=== PATIENT | male | born 1955 | race Caucasian/White ===

== ENCOUNTER → 2017-04-07 | Outpatient (CLI) | payer OTHER ==
[2016-06-02 14:03] VITALS: BP 153/93
--- NOTE | 2017-04-07 12:21 | MRI ---
MR left shoulder without contrast Indication: Left shoulder pain, neck pain and headaches. Comparison: No recent shoulder imaging. Chest radiograph from 06/02/2016 reviewed. Technique: Multiplanar multi sequence imaging through the left shoulder without contrast. Findings: There is type 1 acromion with mild AC joint degenerative change. No muscle belly atrophy se en. Bone marrow signal is normal. Neurovascular structures are normal. F There is intra-articular biceps tendinosis with partial tearing of the biceps tendon suggested. Devel oping split tear suggested on axial image 21 in the bicipital groove. There is mild subacromial/subdeltoid bursitis. There is SLAP tear at the superior glenoid labrum see coronal image 10. This involves the biceps anch or. This propagates posteriorly into the posterior glenoid labrum see axial images 14-18, and into th e inferior glenoid labrum. Anterior inferior glenoid labrum is relatively intact. Inferior glenohumeral ligament thickening and mild stranding in the rotator interval raises the possi bility of adhesive capsulitis. There is high-grade articular surface tear of the subscapularis at the footprint see sagittal images 19-14, with mild delaminating component tracking centrally on sagittal image 15. This is probably 50% thickness at least. Middle glenohumeral ligament is not well identified and may be torn. If there is intrasubstance high signal at the superior rotator cuff, at the junction of the anterior fiber infra spinatus and posterior fibers supraspinatus. Intrasubstance tearing and tendinosis suspected. This is partial-thickness and probably 25-50% of the thickness of the tendon. This may be hidden at arthrosc opy. Articular surface communication possible. Impression: 1. Complex tear of the superior and posterior glenoid labrum, propagating into the inferior glenoid l abrum. There is thickening of the inferior glenohumeral ligament and stranding in the rotator interva l. Adhesive capsulitis may also be present. 2. The glenoid labrum tear involves the biceps anchor and there is tendinosis of the biceps tendon po ssible split tear at the bicipital groove. Joint fluid tracks along the biceps tendon. 3. Superior rotator cuff tendinosis and possible intrasubstance tear at the junction of the anterior fibers infraspinatus and posterior fibers supraspinatus. This may communicate with the articular surf christian of the tendon but may be difficult visualize arthroscopically. 4. AC joint degenerative changes subacromial/subdeltoid bursitis. The acromion is minimally downslopi ng contacts the supraspinatus at the myotendinous junction. 5. At least 50% thickness tear of the superior fibers of the subscapularis at the footprint and propa gating centrally with a delaminating component. Reported By:
== END | disposition home or self-care (01) | DRG 149 ==
LOC: RAD 08:24
PROVIDERS: ATTEND Psychiatry & Neurology Neurology with Special Qualifications in Child Neurology
DX: H81.03 Meniere's disease, bilateral (principal); M79.602 Pain in left arm; R51 Headache; M54.2 Cervicalgia; E11.42 Type 2 diabetes mellitus with diabetic polyneuropathy; M21.371 Foot drop, right foot; S43.492A Other sprain of left shoulder joint, initial encounter; X58.XXXA Exposure to other specified factors, initial encounter; M75.22 Bicipital tendinitis, left shoulder; M75.102 Unspecified rotator cuff tear or rupture of left shoulder, not specified as traumatic; M19.012 Primary osteoarthritis, left shoulder
CPT/HCPCS: 73221

== ENCOUNTER 2021-03-21 12:10 | Observation (INO) ==
[2021-03-21 12:13] VITALS: BMI 23.7
--- NOTE | 2021-03-21 12:24 | DR.CP ---
HPI Time Seen Time Seen by Provider: 03/21/21 12:21 PCP Primary Care Physician: MEGAN Complaint Chief Complaint Doctor Comments: 65 y/o male presents for evaluation. Having chest pain over the past week. Was worse yesterday. Pain located of the lower center of the anterior chest. Pressure like in sensation. Does not radiate. Nothing brings it on. Nothing makes it better or worse. Associated with feeling hot, but no diaphoresis. Having some dyspnea with it. Denies recent illness - no cough, congestion, N/V, diarrhea, urinary difficulties, fever or chills. No prior h/o heart disease. 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 Chief Complaint:: PT. C/O CHEST DISCOMFORT X 1 WEEK. CHEST PAIN WORSENED YESTERDAY. PT. HAS HAD ONE BABY ASPIRIN TODAY. PT. ALSO C/O INCREASED SHORTNESS OF BREATH. 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, + cervical fusion Family History History of Family Medical Conditions: Yes Family Medical History: Diabetes Mellitus, Cancer, Heart Failure and Hypertension Social History Does patient currently use any type of tobacco product: No Have you used tobacco products in the last 12 months: No Type of Tobacco Use: None Does any household member use tobacco: No Alcohol Use: None Do you use any recreational Drugs:: No Lives With: Spouse Lives Where: Home Travel Risk Coronavirus risk:travel/contact w/high risk person: No Has patient experienced Coronavirus symptoms: Yes Coronavirus symptoms experienced: Shortness of Breath Infectious screening In the last 2 months have you had wt loss of >10#?: NO Have you had fever, night sweats or hemotysis?: No Have you traveled outside the country in the last 6 months?: No Isolation: Standard ROS Review of Systems Constitutional: No Symptoms Reported Eyes: No Symptoms Reported ENTM: No Symptoms Reported Respiratoy: Short of Breath Cardiovascular: Chest Pain Gastrointestinal/Abdominal: No Symptoms Reported Genitourinary: No Symptoms Reported Neurological: No Symptoms Reported Musculoskeletal: No Symptoms Reported Integumentary: No Symptoms Reported Hematologic/Lymphatic: No Symptoms Reported Endocrine: No Symptoms Reported Psychiatric: No Symptoms Reported All Other Systems: Reviewed and Negative PE Vitals Vitals: Temperature 97.9 F Pulse Rate 97 Respiratory Rate 14 Blood Pressure [Right Arm] 153/93 Blood Pressure [Left Arm] 132/86 Blood Pressure 128/90 O2 Sat by Pulse Oximetry 93 General Limitations: No Limitations General Appearance: Alert and In No Apparent Distress Head Head Exam: Normal Inspection Eyes Eye exam: Normal Appearance ENT ENT Exam: Normal Exam Chest Chest Inspection: Normal Inspection Respiratory Respiratory Exam: Normal Lung Sounds Bilat; negative Accessory Muscle Use and Respiratory Distress Respiratory Exam: Bilateral: Clear to Auscultation Cardiovascular Cardiovascular Exam: Regular Rate, Normal Rhythm and Normal Heart Sounds Abdominal Exam Abdominal Exam: Normal Inspection, Normal Bowel Sounds and Soft; negative Tenderness Extremities Extremities Exam: Normal Inspection and Full ROM; negative Edema Back Back Exam: Normal Inspection and Full ROM Neurologic Neurological Exam: Alert, Oriented X3 and CN II-XII Intact; negative Motor Sensory Deficit Psychiatric Psychiatric Exam: Normal Affect Skin Skin Exam: Warm and Dry MDM Differential Diagnosis Differential Diagnosis: Angina, Aortic Dissection, Chest Wall Pain, Cholelithasis, Costochondritis, Myocardial Infarction, Pneumonia and Pulmonary Embolus COURSE Treatment Treatment: 65 y/o male with chest pain off/on past week, was worse yesterday. PE benign, w/u initiated. EKG without obvious ischemic changes. Took ASA this AM. 1500 - pt remains stable. 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 Discussed with his attending, Dr. Bray, will do an observation admission for chest pain, for further evaluation. 1633- CTA of the chest without aortic issues. Does have extensive calcifications of the coronary arteries. ROR Labs Reviewed Laboratory Results Reviewed?: Yes Result Diagrams: 03/21/21 12:21 03/21/21 12:21 Laboratory: WBC 8.2 X10^3/uL (3.6-10.0) 03/21/21 12:21 RBC 5.71 X10^6/uL (4.7-6.0) 03/21/21 12:21 Hgb 17.6 g/dL (13.5-18.0) 03/21/21 12:21 Hct 49.3 % (42.0-54.0) 03/21/21 12:21 MCV 86.3 fL (80.0-100.0) 03/21/21 12:21 MCH 30.7 pg (27.0-34.0) 03/21/21 12:21 MCHC 35.6 g/dL (33.0-35.0) H 03/21/21 12:21 RDW 14.4 % (11.6-16.5) 03/21/21 12:21 Plt Count 210 X10^3/uL (150.0-450.0) 03/21/21 12:21 MPV 7.4 fL (7.4-11.0) 03/21/21 12:21 Neut % (Auto) 72.2 % (42.0-75.0) 03/21/21 12: Lymph % (Auto) 14.1 % (21.0-51.0) L 03/21/21 12:21 [place] % (Auto) 8.6 % (0.0-13.0) 03/21/21 12:21 Eos % (Auto) 4.4 % (0.9-2.9) H 03/21/21 12:21 Baso % (Auto) 0.7 % (0.2-1.0) 03/21/21 12:21 Neut # (Auto) 5.9 x10^3/uL (2.2-4.8) H 03/21/21 12:21 Lymph # (Auto) 1.2 X10^3/uL (1.3-2.9) L 03/21/21 12:21 [place] # (Auto) 0.7 x10^3/uL (0.3-0.8) 03/21/21 12:21 Eos # (Auto) 0.4 x10^3/uL (0.0-0.2) H 03/21/21 12:21 Baso # (Auto) 0.1 X10^3/uL (0.0-0.1) 03/21/21 12:21 Absolute Nucleated RBC 0.1 /100WBC 03/21/21 12:21 Sodium 138 mmol/L (136-145) 03/21/21 12:21 Corrected Sodium 139 mmol/L (136-145) 03/21/21 12:21 Potassium 3.9 mmol/L (3.5-5.1) 03/21/21 12:21 Chloride 99 mmol/L (98-107) 03/21/21 12:21 Carbon Dioxide 30.9 mmol/L (21-32) 03/21/21 12:21 BUN 17 mg/dL (7-18) 03/21/21 12:21 Creatinine 0.98 mg/dL (0.70-1.30) 03/21/21 12:21 Est GFR (MDRD) Af Amer > 60 (>60) 03/21/21 12:21 Est GFR (MDRD) Non-Af > 60 (>60) 03/21/21 12:21 Glucose 152 mg/dL (65-99) H 03/21/21 12:21 Calcium 9.2 mg/dL (8.5-10.1) 03/21/21 12:21 Corrected Calcium TNP 03/21/21 12:21 Total Bilirubin 0.70 mg/dL (0.2-1.0) 03/21/21 12:21 AST 22 Units/L (15-37) 03/21/21 12:21 ALT 31 Units/L (12-78) 03/21/21 12:21 Alkaline Phosphatase 105 Units/L (46-116) 03/21/21 12:21 Creatine Kinase 23 Units/L (39-308) L 03/21/21 12:21 CK-MB (CK-2) 1.4 ng/mL (0-4.0) 03/21/21 12:21 CK/CKMB % Calc 6.1 % (<4) 03/21/21 12:21 Troponin I < 0.02 ng/mL (0-1.5) 03/21/21 12:21 Total Protein 7.0 g/dL (6.4-8.2) 03/21/21 12:21 Albumin 3.6 g/dL (3.4-5.0) 03/21/21 12:21 Globulin 3.4 g/dL (2.5-4.5) 03/21/21 12:21 Albumin/Globulin Ratio 1.1 Ratio (1.1-2.1) 03/21/21 12:21 Other Results Comments: Labs overall acceptable. XRAY XRAY Interpreted by: Both X-ray Results: CXR without acute abnormalities EKG Rate: 94 [place]: LAD Rhythm: NSR Block: RBBB Hypertrophy: LAE ST: Nonsp Opioid Opioid Risk Tool Age (Nikolai box if 16-45): No History of Preadolescent Sexual Abuse: No Total: 0 Total Score Risk Category: Low Risk Copyright: [facility] predicting aberrant behaviors Diagnosis Discharge Problem: Chest pain Qualifiers: Chest pain type: unspecified Qualified Code(s): R07.9 - Chest pain, unspecified
--- NOTE | 2021-03-21 12:52 | RAD ---
HISTORYCHEST PAIN HX HTN, DM, COPD. SX ANGIO/STENTS, CELIAC ANEURYSM REPAIR, ORTHO, SPINE.STUDYCHEST, 1 VIEWCOMPARISONPortable chest May 30, 2020FINDINGSThe trachea is midline. The cardiac silhouette is unremarkable. The lungs are clear without focal infiltrate or effusion. The bony thorax is unremarkable other than evidence of anterior and posterior cervical fusion surgery.IMPRESSIONNo acute cardiopulmonary disease with interval resolution of the infiltrate in the right upper lobe since May 30, 2020Electronically signed by: JACQUELINE VARGAS (Mar 21, 2021 12:50:53)
[2021-03-21 12:58] LABS: ALANINE AMINOTRANSFERASE 31 Units/L (12-78); ALBUMIN 3.6 g/dL (3.4-5.0); ALKALINE PHOSPHATASE 105 Units/L (46-116); ASPARTATE AMINO TRANSFERASE 22 Units/L (15-37); BLOOD UREA NITROGEN 17 mg/dL (7-18); CALCIUM 9.2 mg/dL (8.5-10.1); CARBON DIOXIDE 30.9 mmol/L (21-32); CHLORIDE 99 mmol/L (98-107); CKMB % 6.1 % (<4); COR NA(FOR HYPERGLY) 139 mmol/L (136-145); CREATINE KINASE 23 Units/L (39-308); CREATINE KINASE MB 1.4 ng/mL (0-4.0); CREATININE 0.98 mg/dL (0.70-1.30); SODIUM 138 mmol/L (136-145); TROPONIN I < 0.02 ng/mL (0-1.5); eGFR NON BLACK RACES > 60 (>60)
[2021-03-21 13:05] LABS: BASOPHILS # (AUTO) 0.1 X10^3/uL (0.0-0.1); BASOPHILS % (AUTO) 0.7 % (0.2-1.0); EOSINOPHILS # (AUTO) 0.4 x10^3/uL (0.0-0.2); EOSINOPHILS % (AUTO) 4.4 % (0.9-2.9); HEMATOCRIT 49.3 % (42.0-54.0); HEMOGLOBIN 17.6 g/dL (13.5-18.0); LYMPHOCYTES # (AUTO) 1.2 X10^3/uL (1.3-2.9); LYMPHOCYTES % (AUTO) 14.1 % (21.0-51.0); MEAN CORPUSCULAR HEMOGLOBIN 30.7 pg (27.0-34.0); MEAN CORPUSCULAR HGB CONC 35.6 g/dL (33.0-35.0); MEAN CORPUSCULAR VOLUME 86.3 fL (80.0-100.0); MEAN PLATELET VOLUME 7.4 fL (7.4-11.0); MONOCYTES # (AUTO) 0.7 x10^3/uL (0.3-0.8); MONOCYTES % (AUTO) 8.6 % (0.0-13.0); NEUTROPHILS # (AUTO) 5.9 x10^3/uL (2.2-4.8); NEUTROPHILS % (AUTO) 72.2 % (42.0-75.0); PLATELET COUNT 210 X10^3/uL (150.0-450.0); RED BLOOD COUNT 5.71 X10^6/uL (4.7-6.0); RED CELL DISTRIBUTION WIDTH 14.4 % (11.6-16.5); WHITE BLOOD COUNT 8.2 X10^3/uL (3.6-10.0)
[2021-03-21] MEDS ORDERED: NS 100 ML IV 100 ML ONE (14:59)
--- NOTE | 2021-03-21 15:44 | CT ---
HISTORY:Chest pain, possible acute aortic syndromeStudy: CTA chestComparison:NoneTechnique: Multiple axial images of the chest were obtained after the administration of IV contrast. 3D reconstructions were performed utilizing radial maximum intensity projection imaging. Dose reduction techniques including Automated Exposure Control (AEC) and adjustment of mA and kV were utilized.Findings:Contrast opacification of the pulmonary arteries is adequate to the level of the segmental branches. No evidence of acute pulmonary emboli. There is calcified throughout the coronary arteries. No pericardial effusion. The aorta appears normal in course and caliber. No dissection or aneurysm. The lungs are clear. No infiltrate, effusion or pneumothorax identified. Airways are patient.Partially visualized fusion hardware in the cervical and upper thoracic spine. Multilevel discogenic degenerative changes are present. There is a compression deformity of T10 that is stable. There are postsurgical changes at the celiac trunk from aneurysm repair with metallic artifact obscuring anatomic detail. Gallbladder mildly distended.IMPRESSION:No acute cardiopulmonary abnormality identified.Extensive atherosclerotic disease of the coronary arteries.Chronic degenerative and postsurgical changes the spine. Chronic T10 compression deformity.Surgical changes from celiac aneurysm repair.Electronically signed by: KEZIA GREER (Mar 21, 2021 15:42:05)
[2021-03-21] MEDS: NEURONTIN CAP 400 MG PO SCH ×2 (18:23→20:55)
[2021-03-21 18:57] LABS: CKMB % 5.3 % (<4); CREATINE KINASE 19 Units/L (39-308); CREATINE KINASE MB < 1.0 ng/mL (0-4.0); TROPONIN I < 0.02 ng/mL (0-1.5)
[2021-03-21] MEDS: LIPITOR TAB 10 MG PO SCH (21:04)
[2021-03-21] MEDS: ATIVAN TAB 1 MG PO SCH (21:04)
[2021-03-21] MEDS: NORVASC TAB 5 MG PO SCH (21:05)
[2021-03-21] MEDS: HumuLIN R SUBCUT PRN (21:06)
[2021-03-22] MEDS: ZANAFLEX PO SCH ×2 (00:07→05:44)
[2021-03-22 00:52] LABS: CKMB % 5.6 % (<4); CREATINE KINASE 18 Units/L (39-308); CREATINE KINASE MB < 1.0 ng/mL (0-4.0); TROPONIN I < 0.02 ng/mL (0-1.5)
[2021-03-22 05:43] LABS: BASOPHILS % (AUTO) 0.2 % (0.2-1.0); EOSINOPHILS # (AUTO) 0.8 x10^3/uL (0.0-0.2); EOSINOPHILS % (AUTO) 13.4 % (0.9-2.9); HEMATOCRIT 44.5 % (42.0-54.0); HEMOGLOBIN 15.8 g/dL (13.5-18.0); LYMPHOCYTES # (AUTO) 1.9 X10^3/uL (1.3-2.9); LYMPHOCYTES % (AUTO) 32.1 % (21.0-51.0); MEAN CORPUSCULAR HEMOGLOBIN 30.6 pg (27.0-34.0); MEAN CORPUSCULAR HGB CONC 35.6 g/dL (33.0-35.0); MEAN CORPUSCULAR VOLUME 85.9 fL (80.0-100.0); MEAN PLATELET VOLUME 7.4 fL (7.4-11.0); MONOCYTES # (AUTO) 0.7 x10^3/uL (0.3-0.8); NEUTROPHILS # (AUTO) 2.6 x10^3/uL (2.2-4.8); NEUTROPHILS % (AUTO) 43.3 % (42.0-75.0); PLATELET COUNT 184 X10^3/uL (150.0-450.0); RED BLOOD COUNT 5.18 X10^6/uL (4.7-6.0); RED CELL DISTRIBUTION WIDTH 14.4 % (11.6-16.5); WHITE BLOOD COUNT 5.9 X10^3/uL (3.6-10.0)
[2021-03-22 05:59] LABS: ALANINE AMINOTRANSFERASE 20 Units/L (12-78); ALKALINE PHOSPHATASE 93 Units/L (46-116); ASPARTATE AMINO TRANSFERASE 14 Units/L (15-37); BLOOD UREA NITROGEN 18 mg/dL (7-18); CALCIUM 8.5 mg/dL (8.5-10.1); CARBON DIOXIDE 32.4 mmol/L (21-32); CHLORIDE 103 mmol/L (98-107); CKMB % 5.9 % (<4); COR CA(FOR HYPOALB) 9.3 mg/dL (8.5-10.1); CREATINE KINASE 17 Units/L (39-308); CREATINE KINASE MB < 1.0 ng/mL (0-4.0); CREATININE 0.88 mg/dL (0.70-1.30); SODIUM 141 mmol/L (136-145); TROPONIN I < 0.02 ng/mL (0-1.5); eGFR NON BLACK RACES > 60 (>60)
[2021-03-22] MEDS: ATIVAN TAB 1 MG PO SCH ×3 (08:01→21:05)
[2021-03-22] MEDS: NEURONTIN CAP 400 MG PO SCH ×5 (08:01→21:05)
[2021-03-22] MEDS ORDERED: METFORMIN PO SCH (09:00)
[2021-03-22] MEDS ORDERED: PATIENT'S HOME MEDICATION (Losartan-Hydrochlorothiazide 100-25 mg tablet) PO SCH (09:00)
[2021-03-22] MEDS ORDERED: [UNRECOGNIZED DRUG - OTHER] PO SCH (09:00)
[2021-03-22] MEDS ORDERED: SAXAGLIPTIN PO SCH (09:00)
[2021-03-22] MEDS: CELEXA PO SCH (09:15)
[2021-03-22] MEDS: HYZAAR 50/12.5 MG PO SCH (09:15)
[2021-03-22] MEDS: PATIENT'S HOME MEDICATION (Dapagliflozin [Farxiga] 5 mg Tablet) PO SCH (09:15)
[2021-03-22] MEDS ORDERED: MICRO K EXTEN CAP 10 MEQ PO PRN (09:54)
[2021-03-22] MEDS ORDERED: POTASSIUM CHLORIDE LIQ 20 MEQ UDC PO PRN (09:54)
[2021-03-22] MEDS ORDERED: POTASSIUM CHL 40 MEQ/NS 0.45% 500 ML IV PRN (09:54)
[2021-03-22] MEDS ORDERED: POTASSIUM CHL 60 MEQ/NS 0.45% 500 ML IV PRN (09:54)
[2021-03-22] MEDS ORDERED: KLOR-CON PO PRN (09:54)
[2021-03-22] MEDS ORDERED: K-RIDER 10 MEQ/NS 100 ML 10 MEQ/100 ML BAG IV PRN (09:54)
[2021-03-22] MEDS: LOVENOX INJ 40 MG SYR SC SCH (10:50)
[2021-03-22] MEDS: PROTONIX INJ 40 MG VIAL IVP SCH ×2 (10:50→21:06)
[2021-03-22] MEDS: K-DUR TAB 20 MEQ PO PRN (11:21)
[2021-03-22 11:46] LABS: CREATINE KINASE 25 Units/L (39-308); CREATINE KINASE MB < 1.0 ng/mL (0-4.0); TROPONIN I < 0.02 ng/mL (0-1.5)
--- NOTE | 2021-03-22 13:19 | DR.H&P ---
H&P - History & Physical for Day of: H&P Date: 03/21/21 - Chief Complaint Chief Complaint: CHEST PAIN - History of Present Illness History of Present Illness: 65 y/o male presents for evaluation. Having chest pain over the past week. Was worse yesterday. Pain located of the lower center of the anterior chest. Pressure like in sensation. Does not radiate. Nothing brings it on. Nothing makes it better or worse. Associated with feeling hot, but no diaphoresis. Having some dyspnea with it. Denies recent illness - no cough, congestion, N/V, diarrhea, urinary difficulties, fever or chills. No prior h/o heart disease. Does has a h/o two stents due to aneurysm. Pt was referred for cardiac work up due to increased sob on exertion and fatigue. - Past Medical History Past Medical History: Hypertension, Diabetes, Anxiety, COPD, Arthritis, Migraines - Past Surgical History Surgical History: Angioplasty/Stents, Other - Family History Family Medical History: Diabetes Mellitus, Cancer, Heart Failure, Hypertension - Social History Does patient currently use any type of tobacco product: No Have you used tobacco products in the last 12 months: No Type of Tobacco Use: None Does any household member use tobacco: No Alcohol Use: None Drug Use: None - Medications Home Medications: Sulfa (Sulfonamide Antibiotics) [SULFA] Allergy (Verified 03/21/21 12:13) sulfamethoxazole [From Bactrim] Allergy (Verified 03/21/21 12:13) trimethoprim [From Bactrim] Allergy (Verified 03/21/21 12:13) CONTINUE taking the following medications amlodipine [Norvasc] 5 mg PO HS 03/21/21 [History] aeppjrzvoi-bcqoqdkxeb-qbj-cod 1 cap PO Q6HR PRN 03/21/21 [History] oxycodone-acetaminophen 1 tab PO QID PRN 03/21/21 [History] - Review of Systems Constitutional: Weakness, Malaise Eyes: No Symptoms Reported ENT: No Symptoms Reported Respiratory: Shortness of Breath, SOB with Excertion Cardiovascular: Chest Pain Gastrointestinal: No Symptoms Reported Genitourinary: No Symptoms Reported Musculoskeletal: Back Pain, Neck Pain Skin: No Symptoms Reported Neurological: No Symptoms Reported - Physical Exam Vital Signs: Temperature 97.8 F Pulse Rate [Radial] 82 Pulse Rate 95 Respiratory Rate 20 Blood Pressure [Right Arm] 129/80 Blood Pressure [Left Arm] 124/85 Blood Pressure 119/87 O2 Sat by Pulse Oximetry 93 Oriented: Normal Eyes: Normal Ear: Normal Nose: Normal Throat: Normal Respiratory: RLL Diminished, LLL Diminished Cardiovascular: Normal. negative: Edema : Normal Auscultation: Bowel Sounds: Normal Palpation: Normal Tenderness: Normal Skin: Normal Musculoskeletal: Back:Thoracic, Back:Lumbar Psychiatric: Normal Mood Description: Calm Speech Pattern: Clear, Appropriate - Assessment/Plan (1) Chest pain Qualifiers: Chest pain type: unspecified Qualified Code(s): R07.9 - Chest pain, u nspecified Status: Acute Plan: ADMIT, SERIAL CE AND EKGS, ECHO. BP AND BS CONTROL. VERIFY HOME MEDICATION. LOVENOX, CXR ON ADMISSION. PPI THERAPY (2) Neuropathy Status: Chronic (3) Diabetes mellitus, type 2 Qualifiers: Status: Chronic (4) Hypertension Status: Chronic (5) Hyperlipidemia Qualifiers: Status: Chronic - Allergies Allergies/Adverse Reactions: Allergies Allergy/AdvReac Type Severity Reaction Status Date / Time Sulfa (Sulfonamide Allergy Verified 03/21/21 12:13 Antibiotics) [SULFA] sulfamethoxazole Allergy Verified 03/21/21 12:13 [From Bactrim] trimethoprim [From Bactrim] Allergy Verified 03/21/21 12:13
[2021-03-22] MEDS ORDERED: ZANAFLEX PO PRN (13:20)
[2021-03-22] MEDS ORDERED: ZANAFLEX PO SCH (14:00)
[2021-03-22] MEDS: SNACK - Diabetic Appropriate PO SCH (20:30)
[2021-03-22] MEDS: LIPITOR TAB 10 MG PO SCH (21:05)
[2021-03-22] MEDS: NORVASC TAB 5 MG PO SCH ×2 (21:06→22:03)
[2021-03-23 06:30] LABS: BASOPHILS % (AUTO) 0.2 % (0.2-1.0); EOSINOPHILS # (AUTO) 1.1 x10^3/uL (0.0-0.2); EOSINOPHILS % (AUTO) 17.6 % (0.9-2.9); HEMATOCRIT 45.1 % (42.0-54.0); HEMOGLOBIN 15.8 g/dL (13.5-18.0); LYMPHOCYTES # (AUTO) 1.8 X10^3/uL (1.3-2.9); LYMPHOCYTES % (AUTO) 29.2 % (21.0-51.0); MEAN CORPUSCULAR HEMOGLOBIN 30.3 pg (27.0-34.0); MEAN CORPUSCULAR HGB CONC 35.1 g/dL (33.0-35.0); MEAN CORPUSCULAR VOLUME 86.2 fL (80.0-100.0); MEAN PLATELET VOLUME 7.6 fL (7.4-11.0); MONOCYTES # (AUTO) 0.5 x10^3/uL (0.3-0.8); MONOCYTES % (AUTO) 8.5 % (0.0-13.0); NEUTROPHILS # (AUTO) 2.8 x10^3/uL (2.2-4.8); NEUTROPHILS % (AUTO) 44.5 % (42.0-75.0); PLATELET COUNT 179 X10^3/uL (150.0-450.0); RED BLOOD COUNT 5.23 X10^6/uL (4.7-6.0); RED CELL DISTRIBUTION WIDTH 14.6 % (11.6-16.5); WHITE BLOOD COUNT 6.3 X10^3/uL (3.6-10.0)
[2021-03-23 06:49] LABS: ALANINE AMINOTRANSFERASE 23 Units/L (12-78); ALBUMIN 3.1 g/dL (3.4-5.0); ALKALINE PHOSPHATASE 90 Units/L (46-116); ASPARTATE AMINO TRANSFERASE 17 Units/L (15-37); BLOOD UREA NITROGEN 18 mg/dL (7-18); CALCIUM 8.8 mg/dL (8.5-10.1); CARBON DIOXIDE 28.9 mmol/L (21-32); CHLORIDE 103 mmol/L (98-107); COR CA(FOR HYPOALB) 9.5 mg/dL (8.5-10.1); COR NA(FOR HYPERGLY) 141 mmol/L (136-145); CREATININE 0.89 mg/dL (0.70-1.30); SODIUM 140 mmol/L (136-145); TOTAL PROTEIN 6.3 g/dL (6.4-8.2); eGFR NON BLACK RACES > 60 (>60)
[2021-03-23] MEDS: CELEXA PO SCH (08:08)
[2021-03-23] MEDS: ATIVAN TAB 1 MG PO SCH ×2 (08:08→20:52)
[2021-03-23] MEDS: NEURONTIN CAP 400 MG PO SCH ×4 (08:09→20:52)
[2021-03-23] MEDS: HYZAAR 50/12.5 MG PO SCH (08:09)
[2021-03-23] MEDS: LOVENOX INJ 40 MG SYR SC SCH (08:09)
[2021-03-23] MEDS: PROTONIX INJ 40 MG VIAL IVP SCH ×2 (08:09→20:53)
[2021-03-23] MEDS: PATIENT'S HOME MEDICATION (Dapagliflozin [Farxiga] 5 mg Tablet) PO SCH (08:31)
[2021-03-23] MEDS: K-DUR TAB 20 MEQ PO PRN (09:57)
[2021-03-23] MEDS: CORDARONE TAB 200 MG PO SCH ×2 (11:00→16:43)
[2021-03-23 11:45] LABS: CKMB % 4.4 % (<4); CREATINE KINASE 23 Units/L (39-308); CREATINE KINASE MB < 1.0 ng/mL (0-4.0); TROPONIN I < 0.02 ng/mL (0-1.5)
--- NOTE | 2021-03-23 16:23 | PCM.PROG ---
Progress Note Progress Note for Day of Date of Exam: 03/23/21 Subjective Subjective: Feeling better overall. No chest pain. Past Medical Family Social History Allergies: Allergies Sulfa (Sulfonamide Antibiotics) [SULFA] Allergy (Verified 03/21/21 12:13) sulfamethoxazole [From Bactrim] Allergy (Verified 03/21/21 12:13) trimethoprim [From Bactrim] Allergy (Verified 03/21/21 12:13) Review of Systems ROS changes noted: Heart papatations. Vital Signs and I&O's Vital Signs: Temperature 97.6 F Pulse Rate [Radial] 86 Pulse Rate 95 Respiratory Rate 18 Blood Pressure [Right Arm] 133/82 Blood Pressure [Left Arm] 124/85 Blood Pressure 119/87 O2 Sat by Pulse Oximetry 95 Intake and Output: Intake & Output 03/21/21 03/22/21 03/23/21 03/24/21 11:59 11:59 11:59 11:59 Intake Total 660 / 660 1989 Balance 660 / 660 1989 Physical Exam Oriented: Normal Eyes: Normal Respiratory: Normal Cardiovascular: Normal; negative Edema : Normal Auscultation: Bowel Sounds: Normal Tenderness: Normal Skin: Normal Musculoskeletal: Back:Thoracic and Back:Lumbar Psychiatric: Normal Mood Description: Calm Speech Pattern: Clear and Appropriate Laboratory and Diagnostics Result Diagrams: 03/23/21 05:35 03/23/21 05:35 Labs: Laboratory WBC 6.3 X10^3/uL (3.6-10.0) 03/23/21 05:35 RBC 5.23 X10^6/uL (4.7-6.0) 03/23/21 05:35 Hgb 15.8 g/dL (13.5-18.0) 03/23/21 05:35 Hct 45.1 % (42.0-54.0) 03/23/21 05:35 MCV 86.2 fL (80.0-100.0) 03/23/21 05:35 MCH 30.3 pg (27.0-34.0) 03/23/21 05:35 MCHC 35.1 g/dL (33.0-35.0) H 03/23/21 05:35 RDW 14.6 % (11.6-16.5) 03/23/21 05:35 Plt Count 179 X10^3/uL (150.0-450.0) 03/23/21 05:35 MPV 7.6 fL (7.4-11.0) 03/23/21 05:35 Neut % (Auto) 44.5 % (42.0-75.0) 03/23/21 05:35 Lymph % (Auto) 29.2 % (21.0-51.0) 03/23/21 05:35 [place] % (Auto) 8.5 % (0.0-13.0) 03/23/21 05:35 Eos % (Auto) 17.6 % (0.9-2.9) H 03/23/21 05:35 Baso % (Auto) 0.2 % (0.2-1.0) 03/23/21 05:35 Neut # (Auto) 2.8 x10^3/uL (2.2-4.8) 03/23/21 05:35 Lymph # (Auto) 1.8 X10^3/uL (1.3-2.9) 03/23/21 05:35 [place] # (Auto) 0.5 x10^3/uL (0.3-0.8) 03/23/21 05:35 Eos # (Auto) 1.1 x10^3/uL (0.0-0.2) H 03/23/21 05:35 Baso # (Auto) 0.0 X10^3/uL (0.0-0.1) 03/23/21 05:35 Absolute Nucleated RBC 0.5 /100WBC 03/23/21 05:35 Sodium 140 mmol/L (136-145) 03/23/21 05:35 Corrected Sodium 141 mmol/L (136-145) 03/23/21 05:35 Potassium 3.4 mmol/L (3.5-5.1) L 03/23/21 05:35 Chloride 103 mmol/L (98-107) 03/23/21 05:35 Carbon Dioxide 28.9 mmol/L (21-32) 03/23/21 05:35 BUN 18 mg/dL (7-18) 03/23/21 05:35 Creatinine 0.89 mg/dL (0.70-1.30) 03/23/21 05:35 Est GFR (MDRD) Af Amer > 60 (>60) 03/23/21 05:35 Est GFR (MDRD) Non-Af > 60 (>60) 03/23/21 05:35 Glucose 145 mg/dL (65-99) H 03/23/21 05:35 POC Glucose (mg/dL) 134 mg/dL (65-99) H 03/23/21 11:06 Calcium 8.8 mg/dL (8.5-10.1) 03/23/21 05:35 Corrected Calcium 9.5 mg/dL (8.5-10.1) 03/23/21 05:35 Magnesium 2.0 mg/dL (1.7-2.9) 03/22/21 05:17 Total Bilirubin 0.50 mg/dL (0.2-1.0) 03/23/21 05:35 AST 17 Units/L (15-37) 03/23/21 05:35 ALT 23 Units/L (12-78) 03/23/21 05:35 Alkaline Phosphatase 90 Units/L (46-116) 03/23/21 05:35 Creatine Kinase 23 Units/L (39-308) L 03/23/21 11:18 CK-MB (CK-2) < 1.0 ng/mL (0-4.0) 03/23/21 11:18 CK/CKMB % Calc 4.4 % (<4) 03/23/21 11:18 Troponin I < 0.02 ng/mL (0-1.5) 03/23/21 11:18 Total Protein 6.3 g/dL (6.4-8.2) L 03/23/21 05:35 Albumin 3.1 g/dL (3.4-5.0) L 03/23/21 05:35 Globulin 3.2 g/dL (2.5-4.5) 03/23/21 05:35 Albumin/Globulin Ratio 1.0 Ratio (1.1-2.1) L 03/23/21 05:35 SARS-CoV-2 (PCR) Negative (NEGATIVE) 03/21/21 15:52 Influenza Type A (PCR) Negative (NEGATIVE) 03/21/21 15:52 Influenza Type B (PCR) Negative (NEGATIVE) 03/21/21 15:52 RSV (PCR) Negative (NEGATIVE) 03/21/21 15:52 Rhythm: PVCs Plan (1) Hypokalemia: Status: Acute Plan: Potassium replacement protocol. (2) PVC's (premature ventricular contractions): Status: Acute Plan: PO Amiodarone. (3) Chest pain: Status: Acute Qualifiers: Chest pain type: unspecified Qualified Code(s): R07.9 - Chest pain, unspecified Plan: Possible discharge home in am if no further PVC's and chest pain. (4) Neuropathy: Status: Chronic (5) Diabetes mellitus, type 2: Status: Chronic (6) Hypertension: Status: Chronic Plan: Monitor BP. (7) Hyperlipidemia: Status: Chronic
[2021-03-23] MEDS: NORVASC TAB 5 MG PO SCH (20:52)
[2021-03-23] MEDS: SNACK - Diabetic Appropriate PO SCH (20:52)
[2021-03-23] MEDS: LIPITOR TAB 10 MG PO SCH (20:52)
[2021-03-23] MEDS: HumuLIN R SUBCUT PRN (20:55)
[2021-03-24] MEDS: CORDARONE TAB 200 MG PO SCH (06:12)
[2021-03-24] MEDS: HumuLIN R SUBCUT PRN (06:12)
[2021-03-24 06:51] LABS: BASOPHILS % (AUTO) 0.2 % (0.2-1.0); HEMATOCRIT 45.1 % (42.0-54.0); HEMOGLOBIN 16.2 g/dL (13.5-18.0); LYMPHOCYTES # (AUTO) 1.7 X10^3/uL (1.3-2.9); LYMPHOCYTES % (AUTO) 28.6 % (21.0-51.0); MEAN CORPUSCULAR HEMOGLOBIN 30.7 pg (27.0-34.0); MEAN CORPUSCULAR HGB CONC 35.9 g/dL (33.0-35.0); MEAN CORPUSCULAR VOLUME 85.5 fL (80.0-100.0); MEAN PLATELET VOLUME 7.7 fL (7.4-11.0); MONOCYTES # (AUTO) 0.6 x10^3/uL (0.3-0.8); MONOCYTES % (AUTO) 9.3 % (0.0-13.0); NEUTROPHILS # (AUTO) 2.7 x10^3/uL (2.2-4.8); NEUTROPHILS % (AUTO) 44.9 % (42.0-75.0); PLATELET COUNT 179 X10^3/uL (150.0-450.0); RED BLOOD COUNT 5.28 X10^6/uL (4.7-6.0); RED CELL DISTRIBUTION WIDTH 14.6 % (11.6-16.5); WHITE BLOOD COUNT 6.1 X10^3/uL (3.6-10.0)
[2021-03-24 07:07] LABS: ALANINE AMINOTRANSFERASE 23 Units/L (12-78); ALBUMIN 3.1 g/dL (3.4-5.0); ALKALINE PHOSPHATASE 85 Units/L (46-116); ASPARTATE AMINO TRANSFERASE 18 Units/L (15-37); BLOOD UREA NITROGEN 16 mg/dL (7-18); CALCIUM 8.9 mg/dL (8.5-10.1); CARBON DIOXIDE 29.6 mmol/L (21-32); CHLORIDE 103 mmol/L (98-107); COR CA(FOR HYPOALB) 9.6 mg/dL (8.5-10.1); COR NA(FOR HYPERGLY) 142 mmol/L (136-145); CREATININE 0.83 mg/dL (0.70-1.30); SODIUM 141 mmol/L (136-145); TOTAL PROTEIN 6.3 g/dL (6.4-8.2); eGFR NON BLACK RACES > 60 (>60)
[2021-03-24 09:16] VITALS: BP 121/91
[2021-03-24] MEDS: PATIENT'S HOME MEDICATION (Dapagliflozin [Farxiga] 5 mg Tablet) PO SCH (09:27)
[2021-03-24] MEDS: ATIVAN TAB 1 MG PO SCH (09:27)
[2021-03-24] MEDS: LOVENOX INJ 40 MG SYR SC SCH (09:27)
[2021-03-24] MEDS: HYZAAR 50/12.5 MG PO SCH (09:27)
[2021-03-24] MEDS: CELEXA PO SCH (09:27)
[2021-03-24] MEDS: NEURONTIN CAP 400 MG PO SCH (09:28)
[2021-03-24] MEDS: K-DUR TAB 20 MEQ PO PRN (09:28)
[2021-03-24] MEDS: PROTONIX INJ 40 MG VIAL IVP SCH (09:28)
--- NOTE | 2021-03-24 18:09 | PCM.DCPLAN ---
DISCHARGE SUMMARY Admission Date Date of Admission: 03/21/21 Discharge Date Discharge Date: 03/24/21 Admission Diagnoses (1) Hypokalemia: Status: Acute (2) PVC's (premature ventricular contractions): Status: Acute (3) Chest pain: Status: Acute (4) Neuropathy: Status: Chronic (5) Diabetes mellitus, type 2: Status: Chronic (6) Hypertension: Status: Chronic (7) Hyperlipidemia: Status: Chronic Discharge Diagnoses Discharge Diagnosis: Chest pain resolved. PVC's with heart alpatations. Discharge Medications Discharge Medications: Home Medication List amlodipine [Norvasc] 5 mg PO HS 03/21/21 [History] sdjlgrqbgw-jbbhwmyhcw-dtw-cod 1 cap PO Q6HR PRN 03/21/21 [History] oxycodone-acetaminophen 1 tab PO QID PRN 03/21/21 [History] amiodarone [Pacerone] 100 mg PO BID #60 tab 03/24/21 [Rx] Prescriptions: amiodarone [Pacerone] ANTHONY GRISSOM Hospital Course Vital Signs: Temperature 98.3 F Pulse Rate [Radial] 95 Pulse Rate 95 Respiratory Rate 18 Blood Pressure [Right Arm] 121/91 Blood Pressure [Left Arm] 124/85 Blood Pressure 119/87 O2 Sat by Pulse Oximetry 94 Latest Lab Results: Laboratory Last Values WBC 6.1 X10^3/uL (3.6-10.0) 03/24/21 05:34 RBC 5.28 X10^6/uL (4.7-6.0) 03/24/21 05:34 Hgb 16.2 g/dL (13.5-18.0) 03/24/21 05:34 Hct 45.1 % (42.0-54.0) 03/24/21 05:34 MCV 85.5 fL (80.0-100.0) 03/24/21 05:34 MCH 30.7 pg (27.0-34.0) 03/24/21 05:34 MCHC 35.9 g/dL (33.0-35.0) H 03/24/21 05:34 RDW 14.6 % (11.6-16.5) 03/24/21 05:34 Plt Count 179 X10^3/uL (150.0-450.0) 03/24/21 05:34 MPV 7.7 fL (7.4-11.0) 03/24/21 05:34 Neut % (Auto) 44.9 % (42.0-75.0) 03/24/21 05:34 Lymph % (Auto) 28.6 % (21.0-51.0) 03/24/21 05:34 [place] % (Auto) 9.3 % (0.0-13.0) 03/24/21 05:34 Eos % (Auto) 17.0 % (0.9-2.9) H 03/24/21 05:34 Baso % (Auto) 0.2 % (0.2-1.0) 03/24/21 05:34 Neut # (Auto) 2.7 x10^3/uL (2.2-4.8) 03/24/21 05:34 Lymph # (Auto) 1.7 X10^3/uL (1.3-2.9) 03/24/21 05:34 [place] # (Auto) 0.6 x10^3/uL (0.3-0.8) 03/24/21 05:34 Eos # (Auto) 1.0 x10^3/uL (0.0-0.2) H 03/24/21 05:34 Baso # (Auto) 0.0 X10^3/uL (0.0-0.1) 03/24/21 05:34 Absolute Nucleated RBC 0.3 /100WBC 03/24/21 05:34 Sodium 141 mmol/L (136-145) 03/24/21 05:34 Corrected Sodium 142 mmol/L (136-145) 03/24/21 05:34 Potassium 3.1 mmol/L (3.5-5.1) L 03/24/21 05:34 Chloride 103 mmol/L (98-107) 03/24/21 05:34 Carbon Dioxide 29.6 mmol/L (21-32) 03/24/21 05:34 BUN 16 mg/dL (7-18) 03/24/21 05:34 Creatinine 0.83 mg/dL (0.70-1.30) 03/24/21 05:34 Est GFR (MDRD) Af Amer > 60 (>60) 03/24/21 05:34 Est GFR (MDRD) Non-Af > 60 (>60) 03/24/21 05:34 Glucose 138 mg/dL (65-99) H 03/24/21 05:34 POC Glucose (mg/dL) 175 mg/dL (65-99) H 03/24/21 05:56 Calcium 8.9 mg/dL (8.5-10.1) 03/24/21 05:34 Corrected Calcium 9.6 mg/dL (8.5-10.1) 03/24/21 05:34 Magnesium 2.0 mg/dL (1.7-2.9) 03/24/21 05:34 Total Bilirubin 0.50 mg/dL (0.2-1.0) 03/24/21 05:34 AST 18 Units/L (15-37) 03/24/21 05:34 ALT 23 Units/L (12-78) 03/24/21 05:34 Alkaline Phosphatase 85 Units/L (46-116) 03/24/21 05:34 Creatine Kinase 23 Units/L (39-308) L 03/23/21 11:18 CK-MB (CK-2) < 1.0 ng/mL (0-4.0) 03/23/21 11:18 CK/CKMB % Calc 4.4 % (<4) 03/23/21 11:18 Troponin I < 0.02 ng/mL (0-1.5) 03/23/21 11:18 Total Protein 6.3 g/dL (6.4-8.2) L 03/24/21 05:34 Albumin 3.1 g/dL (3.4-5.0) L 03/24/21 05:34 Globulin 3.2 g/dL (2.5-4.5) 03/24/21 05:34 Albumin/Globulin Ratio 1.0 Ratio (1.1-2.1) L 03/24/21 05:34 SARS-CoV-2 (PCR) Negative (NEGATIVE) 03/21/21 15:52 Influenza Type A (PCR) Negative (NEGATIVE) 03/21/21 15:52 Influenza Type B (PCR) Negative (NEGATIVE) 03/21/21 15:52 RSV (PCR) Negative (NEGATIVE) 03/21/21 15:52 Hospital Course: The patients chst pain resolved durin the hospital stay. All Troponins were negative. He did develope a run of PVC's one night associaed with palpatations. He was started on PO Amiodarone and after that he had no further PVC's. Instructions Instructions: Nonspecific Chest Pain, Wnlc-[id number] Hypertension, Ckfq-mb-Oiuc Type 2 Diabetes Mellitus, Diagnosis, Adult, [id number]-[id number] Forms: Excuse From Work or School Precautions for COVID19 [facility] Social Distancing
== END 2021-03-24 10:30 | disposition home or self-care (01) ==
LOC: MED/SURG 12:10 → ER 12:10 → MED/SURG 17:31
PROVIDERS: ADMIT Internal Medicine; ATTEND Internal Medicine
DX: E87.6 Hypokalemia; I49.3 Ventricular premature depolarization; Z20.822 Contact with and (suspected) exposure to COVID-19; E11.65 Type 2 diabetes mellitus with hyperglycemia; E78.2 Mixed hyperlipidemia; R06.02 Shortness of breath; R94.31 Abnormal electrocardiogram [ECG] [EKG]; J44.9 Chronic obstructive pulmonary disease, unspecified; I10 Essential (primary) hypertension; G62.89 Other specified polyneuropathies; F41.8 Other specified anxiety disorders; R07.89 Other chest pain